=== PATIENT | male | born 1960 | race Caucasian/White ===

== ENCOUNTER 2024-10-26 21:20 | Emergency (ER) | payer SELFPAY ==
[~2024-10-26] VITALS: Ht 177.8 cm; Wt 88.5 kg
[~2024-10-26 21:20] MED LIST: ALEVE220 MG PO; ASPI325 PO; CENTRUM COMPLE1 EACH PO
[2024-10-26 21:32] VITALS: BP 171/108
== END 2024-11-02 21:37 | disposition home or self-care (01) ==
LOC: ER 21:20
DX: I10 Essential (primary) hypertension (principal); F17.200 Nicotine dependence, unspecified, uncomplicated
CPT/HCPCS: 99283